=== PATIENT | female | born 1970 | race Caucasian/White ===

== ENCOUNTER 2016-04-12 03:39 | Emergency (ER) ==
[2016-04-12 04:33] LABS: MANUAL DIFF NEEDED? NO
[2016-04-12 04:37] LABS: BASO% 0.3 % (0.0-0.8); EOS# 0.08 X1000 (0.0-0.7); EOS% 1.2 % (0.0-10.0); HEMATOCRIT 40.8 % (37.0-47.0); HEMOGLOBIN 14.1 g/dL (12.0-16.0); LYMPH# 2.11 X1000 (1.2-3.4); LYMPH% 31.1 % (20.5-51.1); MCH 31.9 PG (27-31); MCHC 34.6 g/dL (33-37); MCV 92.3 FL (81-99); MONO# 0.28 X1000 (0.11-0.59); MONO% 4.1 % (1.7-9.3); MPV 9.7 FL (7.4-10.4); NEUT% 63.3 % (42.2-75.2); PLT 311 X1000 (130-400); RBC 4.42 XMIL (4.2-5.4)
[2016-04-12 05:12] LABS: AGAP 13; ALBUMIN 4.5 g/dL (3.5-5.0); ALKALINE PHOSPHATASE 65 U/L (32-104); BUN 21 mg/dL (8-22); CHLORIDE 103 mmol/L (98-107); CK PROFILE 85 U/L (24-173); COSMO 280; GOT 16 U/L (10-30); GPT 16 U/L (10-36); SODIUM 139 mmol/L (136-145); TCO2 23 mmol/L (25-35); TOTAL BILIRUBIN 0.23 mg/dL (0.20-1.00); TOTAL PROTEIN 7.3 g/dL (6.3-8.3)
[2016-04-12 05:21] LABS: URINE CULTURE NEEDED? NO; URINE MICRO REVIEW NEEDED? NO; URINE SOURCE CLEAN CATCH
--- NOTE | 2016-04-12 05:25 | PROVIDER DOCUMENTATION ---
HPI-General Adult - General Chief Complaint: B/P Problems Stated Complaint: BP UNSTABLE Time Seen by Provider: 04/12/16 05:05 Source: patient Allergies/Adverse Reactions: Patient Allergies Allergy/AdvReac Type Severity Reaction Status Date / Time cephalexin monohydrate * Allergy Severe ANAPHYLAXIS Verified 04/12/16 04:30 [From Keflex] buspirone HCl * [From BuSpar] Allergy HEADACHE Verified 04/12/16 04:30 morphine Allergy ANAPHYLAXIS Verified 04/12/16 04:30 sulfamethoxazole Allergy NAUSEA/VOMI Verified 04/12/16 04:30 [From Bactrim] TING trimethoprim [From Bactrim] Allergy NAUSEA/VOMI Verified 04/12/16 04:30 TING Home Medications: Home Medication List Medication Instructions Recorded Confirmed Last Taken Type Carbamazepine [Tegretol] 200 mg PO BID #60 tablet 01/28/16 04/12/16 04/11/16 19: 00 Rx Metoprolol [Lopressor] 6.25 mg PO BID #30 tablet 01/28/16 04/12/16 04/11/16 07: 00 Rx Fluoxetine HCl [Prozac] 20 mg PO QAM 04/12/16 04/12/16 04/11/16 07:00 History Hydrocortisone [Cortef] 5 mg PO QAM 04/12/16 04/12/16 04/11/16 07:00 History Hydrocortisone [Cortef] 10 mg PO QAM 04/12/16 04/12/16 04/11/16 07:00 History - History of Present Illness -Gen Adult Nature of Presenting Problems: 45 WF had pit insuff diagnosed several years ago. She is followed by Dr. Rosado and is taking Cortef 10/5 daily with supplements depending on how she feels. 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 TSH has not been checked recently. Location of Pain/Injury: reports: head Pain Radiation: reports: no radiation Quality of Pain: reports: none Onset/Duration: reports: 4-6 hours ago Timing: reports: still present Context/Activities at Onset: reports: moderate activity Associated Symptoms: reports: headaches, malaise, weakness Similar Symptoms Previously?: No Recently seen or treated by another doctor?: Yes (Dr Rosado) Review of Systems - Adult - REVIEW OF SYSTEMS - ADULT Constitutional: reports: fatique, weight gain Eyes: reports: no symptoms reported Ears, Nose, Mouth & Throat: reports: no symptoms reported Cardiovascular: reports: no symptoms reported Respiratory: reports: no symptoms reported Genitourinary: reports: no symptoms reported Musculoskeletal: reports: no symptoms reported Integumentary: reports: no symptoms reported Neurological: reports: see HPI Psychiatric: reports: anti-depressant use Endocrine: reports: see HPI Hematologic/Lymphatic: reports: no symptoms reported Allergic/Immunologic: reports: no symptoms reported Past History - Adult - PAST MEDICAL HISTORY-ADULT Review of Records: reports: Old Records Reviewed, Nursing Assessment Review, Medications Reviewed Major Childhood Illnesses: reports: denies history Cardiovascular: reports: denies history Respiratory: reports: denies history Gastrointestinal: reports: Crohn's (says carmenzadanielsonya diagnosed her with this), colitis , IBS Obstetrical/Gynecological: reports: denies history Genitourinary: reports: denies history Musculoskeletal: reports: denies history Neurological: reports: headaches/migraines Psychiatric: reports: depression, psychiatric problems Endocrine/Immune: reports: denies history Other Conditions: reports: denies history - PRIOR SURGERIES/PROCEDURES Surgical/Procedure History: reports: appendectomy, cholecystectomy, hysterectomy , , back/neck (neck) - IMMUNIZATION STATUS Childhood Immunizations: See Nurse Assessment Flu Vaccine: See Nurse Assessment - FAMILY HISTORY Family History: reviewed, not pertinent Physical Exam-General - PHYSICAL EXAM-ADULT Initial Vital Signs Reviewed: Yes - CONSTITUTIONAL General Appearance: appears well, alert, no apparent distress - EYES Eyes: PERRL/EOMI, pink conjunctivae - HEAD, EARS, NOSE, MOUTH & THROAT HENMT: normocephalic/atraumatic, moist mucous membranes, normal ENT inspection - NECK Neck: non-tender, full range of motion, supple - RESPIRATORY Respiratory: chest non-tender, lungs clear, normal breath sounds - CARDIOVASCULAR Cardiovascular: normal peripheral pulses, regular rate, rhythm - GASTROINTESTINAL (ABDOMEN) Abdominal Exam: normal bowel sounds, non tender - GENITOURINARY Rectal Exam: deferred - LYMPHATIC Lymphatic: no adenopathy - MUSCULOSKELETAL Back Exam: normal inspection, no CVA tenderness Extremity: normal range of motion Peripheral Pulses: radial (R): 3+, radial (L): 3+ DTR: bicep (R): 0 (relax phase) - SKIN Integumentary: normal color, normal turgor - NEUROLOGIC Neurologic: grossly normal - PSYCHIATRIC Psych/Mental Status: normal mood/affect Progress - PLAN OF CARE/RESULTS Progress/Plan/Lab Results: Laboratory Tests 04/12/16 04/12/16 04/12/16 04:14 04:14 04:14 WBC 6.78 RBC 4.42 Hgb 14.1 Hct 40.8 MCV 92.3 MCH 31.9 H MCHC 34.6 RDW Std Deviation 12.5 Plt Count 311 MPV 9.7 Immature Gran % (Auto) 0.0 Neut % (Auto) 63.3 Lymph % (Auto) 31.1 [place] % (Auto) 4.1 Eos % (Auto) 1.2 Baso % (Auto) 0.3 Immature Gran # (Auto) 0.00 Neut # (Auto) 4.29 Lymph # (Auto) 2.11 [place] # (Auto) 0.28 Eos # (Auto) 0.08 Baso # (Auto) 0.02 Sodium 139 Potassium 4.0 Chloride 103 Carbon Dioxide 23 L Anion Gap 13 BUN 21 Creatinine 0.8 Estimated GFR/1.73 m2 > 60 BUN/Creatinine Ratio 26 Glucose 95 Calculated Osmolality 280 Calcium 9.0 Total Bilirubin 0.23 AST 16 ALT 16 Alkaline Phosphatase 65 Creatine Kinase 85 Troponin T Total Protein 7.3 Albumin 4.5 Globulin 2.8 Albumin/Globulin Ratio 1.6 Cortisol 9.5 Urine Source Urine Color Urine Turbidity Urine pH Ur Specific [place] Urine Protein Ur Glucose (Stick) Ur Ketones (Stick) Urine Blood Urine Nitrite Urine Bilirubin Urobilinogen Dipstick Urine Leukocytes Urine WBC (Auto) Urine RBC (Auto) U Epithel Cells (Auto) Urine Bacteria (Auto) 04/12/16 04/12/16 04:14 05:00 WBC RBC Hgb Hct MCV MCH MCHC RDW Std Deviation Plt Count MPV Immature Gran % (Auto) Neut % (Auto) Lymph % (Auto) [place] % (Auto) Eos % (Auto) Baso % (Auto) Immature Gran # (Auto) Neut # (Auto) Lymph # (Auto) [place] # (Auto) Eos # (Auto) Baso # (Auto) Sodium Potassium Chloride Carbon Dioxide Anion Gap BUN Creatinine Estimated GFR/1.73 m2 BUN/Creatinine Ratio Glucose Calculated Osmolality Calcium Total Bilirubin AST ALT Alkaline Phosphatase Creatine Kinase Troponin T < 0.010 Total Protein Albumin Globulin Albumin/Globulin Ratio Cortisol Urine Source CLEAN CATCH Urine Color YELLOW Urine Turbidity CLEAR Urine pH 5.5 Ur Specific [place] 1.022 Urine Protein NEGATIVE Ur Glucose (Stick) NEGATIVE Ur Ketones (Stick) NEGATIVE Urine Blood NEGATIVE Urine Nitrite NEGATIVE Urine Bilirubin NEGATIVE Urobilinogen Dipstick NORMAL Urine Leukocytes NEGATIVE Urine WBC (Auto) <10 Urine RBC (Auto) <10 U Epithel Cells (Auto) <10 Urine Bacteria (Auto) NEGATIVE Orders Category Date Time Status CBC WITH DIFF [HEME] Stat Lab 04/12/16 04:14 Completed CK PROFILE [SP CHEM] Stat Lab 04/12/16 04:14 Completed COMPREHENSIVE METABOLIC PANEL [CHEM] Stat Lab 04/12/16 04:14 Completed CORTISOL Stat Lab 04/12/16 04:14 Completed TROPONIN T Stat Lab 04/12/16 04:14 Completed TSH Stat Lab 04/12/16 04:14 Received URINALYSIS W/POSS RFLX CULT [URINALYSIS] Stat Lab 04/12/16 05:00 Completed Ketorolac [Toradol] Med 04/12/16 05:48 Discontinued 30 mg IM NOW ONE - REASSESSMENT Reassessment #1 Time Reassessed: 06:31 Reassessment Comment: TSH is normal - CHANGE OF SHIFT REPORT (ED Provider) Report Given and Care Transferred to:: Dr Mckeon Items Pending: Labs Tentative Impression of Patient: Possibly hypothyroid Departure - Departure Time of Disposition Order: 06:32 DIAGNOSIS: Adrenal insufficiency Disposition: HOME 01 Certified Medical Emergency: Emergent Condition: Good
[2016-04-12 05:28] LABS: BILIRUBIN URINE NEGATIVE (NEGATIVE); BLOOD URINE NEGATIVE (NEGATIVE); COLOR YELLOW; GLUCOSE URINE NEGATIVE (NEGATIVE); LEUKOCYTES URINE NEGATIVE (NEGATIVE); NITRITE URINE NEGATIVE (NEGATIVE); PH URINE 5.5; PROTEIN URINE NEGATIVE (NEGATIVE); SP GRAVITY URINE 1.022; TURBIDITY URINE CLEAR (CLEAR); UROBILINOGEN URINE NORMAL (NORMAL)
[2016-04-12 05:29] LABS: UR EPITHELIAL CELLS <10 /HPF (<10); URINE BACTERIA NEGATIVE /HPF; URINE RBC <10 /HPF (<10); URINE WBC <10 /HPF (<10)
[2016-04-12] MEDS ORDERED: TORADOL IM ONE (05:48)
[2016-04-12] MEDS ORDERED: SOLU-CORTEF IV ONE (06:40)
[2016-04-12] MEDS ORDERED: NS 1,000 ML IV ONE (06:40)
[2016-04-12 09:06] VITALS: BP 120/83
== END 2016-04-12 09:20 | disposition home or self-care (01) ==
LOC: ED 03:39
DX: E27.40 Unspecified adrenocortical insufficiency (principal); R51 Headache; R53.81 Other malaise; R53.1 Weakness; R53.83 Other fatigue; R63.5 Abnormal weight gain; F32.9 Major depressive disorder, single episode, unspecified; Z79.899 Other long term (current) drug therapy
CPT/HCPCS: 80053; 81001; 82533; 82550; 84443; 84484; 85025; J1720; J1885; J7030